=== PATIENT | male | born 1945 | race Caucasian/White ===

== ENCOUNTER 2017-04-25 11:32 | Emergency (ER) | payer MEDICARE, OTHER ==
[~2017-04-25] VITALS: Ht 172.7 cm; Wt 97.0 kg
[~2017-04-25 11:32] MED LIST: ASPIRIN ADULT L81 MG PO; BETIMOL0.25 % OU; GLYB/METFO5 MG/500 M PO; LANTUS100 MG/ML SC; LEVOTHYROXIN25 MC1 PO; LISINOPRIL20 M1 PO; LUMIGAN0.01 % OU; NORVASC PO; ONGLYZA5 MG PO; PRILOSEC20 MG PO; SIMVASTATIN40 MG PO; TENORMIN25 MG PO; VITAMIN B-121000 MCG PO
[2017-04-25 14:05] VITALS: BP 130/70
== END 2017-04-25 14:00 | disposition home or self-care (01) ==
LOC: ED 11:32
PROC: 3E0U33Z Introduction of Anti-inflammatory into Joints, Percutaneous Approach (ICD-10-PCS; principal; 2017-04-25)
DX: M17.11 Unilateral primary osteoarthritis, right knee (principal); M25.562 Pain in left knee; M25.561 Pain in right knee

== ENCOUNTER → 2018-01-25 | Outpatient (REF) | payer MEDICARE, OTHER ==
[2018-01-25 09:05] LABS: HEMATOCRIT 40.1 % (39.0-50.0); HEMOGLOBIN 13.5 g/dl (14.0-18.0); MEAN CELL VOLUME 87.6 fL CALC (80.0-100.0); MEAN CORPUSCULAR HGB 29.5 pG CALC (26.0-32.0); MEAN CORPUSCULAR HGB CONC 33.7 g/L CALC (32.0-36.0); RED BLOOD COUNT 4.58 mill/uL (4.70-6.10); RED CELL DISTRI WIDTH 12.9 % (11.5-15.5)
[2018-01-25 09:24] LABS: ALBUMIN 4.2 g/dL (3.2-5.0); ALKALINE PHOSPHATASE 60 u/l (38-126); ANION GAP 18 (6-22 (CALC)); BILIRUBIN, TOTAL 0.5 mg/dL (0.0-1.4); BUN 13 mg/dL (8-23); BUN/CREATININE RATIO 13 (12-20 (CALC)); CARBON DIOXIDE 26 mmol/l (22-30); CHLORIDE 103 mmol/l (95-108); GFR > 60 ML/MIN (>=60 (CALC)); GFR FOR AFR.AMER. > 60 ML/MIN (>=60 (CALC)); POTASSIUM 3.7 mmol/l (3.5-5.1); SGOT/AST 32 u/l (19-48); SODIUM 143 mmol/l (137-146); TOTAL PROTEIN 7.1 g/dL (6.3-8.2)
[2018-01-25 09:53] LABS: TSH, 3RD GENERATION 3.83 uIU/mL (0.47 - 4.68)
== END | disposition home or self-care (01) ==
LOC: LAB 08:24
PROVIDERS: ATTEND Internal Medicine
DX: E03.9 Hypothyroidism, unspecified (principal); E11.29 Type 2 diabetes mellitus with other diabetic kidney complication; M06.4 Inflammatory polyarthropathy; Z79.899 Other long term (current) drug therapy

== ENCOUNTER 2021-09-29 08:04 | Day surgery (SDC) | payer MEDICARE, OTHER ==
[~2021-09-29] VITALS: Ht 172.7 cm; Wt 92.5 kg
[~2021-09-29 08:04] MED LIST changes: +DORZOLAMIDE HCL2 % OP; +GLUCOPHAGE PO; +IRON325 M1; -LANTUS100 MG/ML SC; +LANTUS100 UNIT SC; +NOVOLOG FL100 UNIT/M SC; +PROTONIX40 M2 PO; +SULFASALAZIN500 M4 PO; +XELPROS0.005 %
[2021-09-29 10:54] VITALS: BP 127/58
== END 2021-09-29 10:46 | disposition home or self-care (01) ==
LOC: ENDO 08:04 → ORM 09:45 → ENDO 09:45
PROVIDERS: ATTEND Surgery
PROC: 0DJD8ZZ Inspection of Lower Intestinal Tract, Via Natural or Artificial Opening Endoscopic (ICD-10-PCS; principal; 2021-09-29)
PROC: 0DB68ZX Excision of Stomach, Via Natural or Artificial Opening Endoscopic, Diagnostic (ICD-10-PCS; 2021-09-29)
DX: K57.31 Diverticulosis of large intestine without perforation or abscess with bleeding (principal); K31.A22 Gastric intestinal metaplasia with high grade dysplasia; K31.7 Polyp of stomach and duodenum; K64.8 Other hemorrhoids; D50.0 Iron deficiency anemia secondary to blood loss (chronic); I10 Essential (primary) hypertension; E11.9 Type 2 diabetes mellitus without complications; Z79.84 Long term (current) use of oral hypoglycemic drugs; Z79.4 Long term (current) use of insulin; Z86.010 Personal history of colon polyps

== ENCOUNTER 2022-06-17 11:44 | Emergency (ER) | payer MEDICARE, OTHER ==
[~2022-06-17] VITALS: Ht 172.7 cm; Wt 91.0 kg
[2022-06-17 12:22] LABS: BASO% 0.8 % (0-3); EOS% 4.4 % (0-8); HEMATOCRIT 41.1 % (39.0-50.0); HEMOGLOBIN 13.3 g/dl (14.0-18.0); LYMPH% 19.2 % (15-41); MEAN CELL VOLUME 89.9 fL CALC (80.0-100.0); MEAN CORPUSCULAR HGB 29.1 pG CALC (26.0-32.0); MEAN CORPUSCULAR HGB CONC 32.4 g/dL CAL (32.0-36.0); MONO% 10.6 % (2-13); NEUT# 6.33 thou/uL (1.82-7.42); RED BLOOD COUNT 4.57 mill/uL (4.70-6.10)
[2022-06-17 12:35] LABS: ALBUMIN 4.3 g/dL (3.2-5.0); ALKALINE PHOSPHATASE 60 u/l (38-126); ANION GAP 12 (6-22 (CALC)); BILIRUBIN, TOTAL 0.5 mg/dL (0.2-1.3); BUN 14 mg/dL (8-23); BUN/CREATININE RATIO 12 (12-20 (CALC)); CARBON DIOXIDE 28 mmol/l (22-30); CHLORIDE 100 mmol/l (95-108); CREATININE 1.2 mg/dL (0.7-1.3); GFR FOR AFR.AMER. > 60 ML/MIN (>=60 (CALC)); GFR OTHER RACES 59 ML/MIN (>=60 (CALC)); LIPASE 148 u/l (23-300); POTASSIUM 3.9 mmol/l (3.5-5.1); SGOT/AST 31 u/l (19-48); SODIUM 137 mmol/l (137-146)
[2022-06-17 12:37] VITALS: BP 139/68
[2022-06-17 12:37] LABS: URINE BILIRUBIN - DIPSTICK NEGATIVE (NEGATIVE); URINE BLOOD DIPSTICK NEGATIVE (NEGATIVE); URINE COLOR YELLOW; URINE GLUCOSE - DIPSTICK NEGATIVE (NEGATIVE); URINE KETONE NEGATIVE (NEGATIVE); URINE LEUK ESTERASE NEGATIVE (NEGATIVE); URINE PROTEIN - DIPSTICK TRACE mg/dL (NEG-TRACE); URINE UROBILINOGEN - DIPSTICK 0.2 E.U./dL (0.2)
[2022-06-17 12:38] LABS: URINE NITRITE - DIPSTICK NEGATIVE (Negative)
[2022-06-17 12:45] VITALS: BP 129/51
[2022-06-17 13:00] VITALS: BP 133/53
[2022-06-17 13:15] VITALS: BP 145/56
[2022-06-17 15:03] VITALS: BP 152/52
[2022-06-17] MEDS ORDERED: ONDANSETRON4 MG PO (15:06)
[2022-06-17] MEDS ORDERED: METHOCARBAMOL500 MG PO (15:06)
[2022-06-17] MEDS ORDERED: AMOX/K CLAV875 M1 PO (15:06)
[2022-06-17 15:10] VITALS: BP 152/52
== END 2022-06-17 15:10 | disposition home or self-care (01) ==
LOC: ED 11:44
PROVIDERS: Nurse Practitioner
DX: K52.9 Noninfective gastroenteritis and colitis, unspecified (principal); M54.50 Low back pain, unspecified; I10 Essential (primary) hypertension; E11.9 Type 2 diabetes mellitus without complications; E78.5 Hyperlipidemia, unspecified; K57.30 Diverticulosis of large intestine without perforation or abscess without bleeding; R16.0 Hepatomegaly, not elsewhere classified; N28.1 Cyst of kidney, acquired; Z79.84 Long term (current) use of oral hypoglycemic drugs; Z79.4 Long term (current) use of insulin
CPT/HCPCS: Q9967